=== PATIENT | male | born 1980 | race African-American/Black ===

== ENCOUNTER 2021-01-06 09:04 | Inpatient (IN) | payer OTHER ==
[2021-01-06 10:01] VITALS: BMI 25.5
[2021-01-06] MEDS ORDERED: BISMUTH SUBSALICYLATE 524 MG/30 ML PO PRN (12:02)
[2021-01-06] MEDS ORDERED: MAGNESIUM CITRATE 300 ML BOTTLE PO PRN (12:02)
[2021-01-06] MEDS ORDERED: ONDANSETRON *ODT* 4 MG TABLET SL PRN (12:02)
[2021-01-06] MEDS ORDERED: LORazepam 1 MG TABLET PO PRN (12:02)
[2021-01-06] MEDS ORDERED: ACETAMINOPHEN 325 MG TABLET (FP) PO PRN ×2 (12:02)
[2021-01-06] MEDS ORDERED: MENTHOL/PHENOL 1 EACH UD MM PRN (12:02)
[2021-01-06] MEDS ORDERED: MAG HYDROX/AL HYDROX/SIMETH 30 ML UNIT-DOSE CUP PO PRN (12:02)
[2021-01-06] MEDS ORDERED: LORazepam 2 MG TABLET PO ONE (12:02)
[2021-01-06] MEDS ORDERED: MAGNESIUM HYDROX 2400MG/30ML ORAL SUSPENSION 30 ML CUP PO PRN (12:02)
[2021-01-06] MEDS ORDERED: hydrOXYzine PAMOATE 25 MG CAPSULE (FP) PO SCH (14:00)
[2021-01-06] MEDS: LIDOCAINE 5% TOPICAL PATCH TP SCH (15:08)
[2021-01-06] MEDS: LORazepam 2 MG TABLET PO SCH ×2 (18:08→23:18)
[2021-01-06] MEDS ORDERED: MELATONIN 5 MG TABLETS PO SCH (22:00)
[2021-01-06] MEDS: CHLORHEXIDINE GLUCONATE 0.12% 15ML CUP MM SCH (23:18)
[2021-01-06] MEDS: LIDOCAINE PATCH REMOVAL MC SCH (23:18)
[2021-01-06] MEDS: THIAMINE HCL 100 MG TABLET (FP) PO SCH (23:18)
[2021-01-07] MEDS: LORazepam 2 MG TABLET PO SCH ×4 (06:00→22:40)
[2021-01-07] MEDS: METHOCARBAMOL 500 MG TABLET PO PRN ×2 (06:01→19:33)
[2021-01-07] MEDS: IBUPROFEN 400 MG TABLET (FP) PO PRN (06:01)
[2021-01-07] MEDS ORDERED: METHADONE HCL 40 MG DISPERSABLE TABLET PO SCH (10:00)
[2021-01-07 10:11] LABS: HEMATOCRIT 38.6 % (35.4-49); HEMOGLOBIN 12.9 GM/dL (11.7-16.9); MCH 31.4 pg (25.7-33.7); MCHC 33.4 g/dl (32.0-35.9); MEAN PLT VOLUME 8.1 fl (7.5-11.1); PLATELET COUNT 256 10^3/uL (134-434); RDW 13.5 % (11.9-15.9); WHITE BLOOD COUNT 4.5 K/mm3 (4.0-10.0)
[2021-01-07 10:13] LABS: ALBUMIN 3.7 g/dl (3.4-5.0); BLOOD UREA NITROGEN 12.7 mg/dL (7-18); CALCIUM 8.8 mg/dL (8.5-10.1)
[2021-01-07 10:16] LABS: CREATININE 0.8 mg/dL (0.55-1.3)
[2021-01-07 10:17] LABS: BILIRUBIN,TOTAL 0.4 mg/dL (0.2-1); TOT PROT 6.8 g/dl (6.4-8.2)
[2021-01-07] MEDS: METHADONE HCL 40 MG DISPERSABLE TABLET PO SCH (10:48)
[2021-01-07] MEDS: LIDOCAINE 5% TOPICAL PATCH TP SCH (10:49)
[2021-01-07] MEDS: PRENATAL VITAMINS W/ FOLIC ACID TABLET (FP) PO SCH (10:49)
[2021-01-07] MEDS: CHLORHEXIDINE GLUCONATE 0.12% 15ML CUP MM SCH ×3 (10:57→22:39)
[2021-01-07] MEDS: NICOTINE 21 MG/24 HOURS TOPICAL PATCH TD PRN (14:16)
[2021-01-07] MEDS: NICOTINE POLACRILEX 2 MG GUM BUC PRN (18:50)
[2021-01-07] MEDS: LIDOCAINE PATCH REMOVAL MC SCH (22:40)
[2021-01-07] MEDS: SUVOREXANT 10 MG TABLET PO PRN (22:43)
[2021-01-07] MEDS: THIAMINE HCL 100 MG TABLET (FP) PO SCH (22:43)
[2021-01-08] MEDS: METHADONE HCL 40 MG DISPERSABLE TABLET PO SCH (05:42)
[2021-01-08] MEDS: LORazepam 1 MG TABLET PO SCH ×4 (05:43→22:31)
[2021-01-08] MEDS: METHOCARBAMOL 500 MG TABLET PO PRN (05:46)
[2021-01-08] MEDS: IBUPROFEN 400 MG TABLET (FP) PO PRN (05:46)
[2021-01-08] MEDS: CHLORHEXIDINE GLUCONATE 0.12% 15ML CUP MM SCH (10:07)
[2021-01-08] MEDS: LIDOCAINE 5% TOPICAL PATCH TP SCH (10:07)
[2021-01-08] MEDS: PRENATAL VITAMINS W/ FOLIC ACID TABLET (FP) PO SCH (10:09)
[2021-01-08] MEDS: CHLORHEXIDINE GLUCONATE 118 ML MOUTHWASH MM SCH ×3 (10:16→22:32)
[2021-01-08] MEDS ORDERED: ERGOCALCIFEROL (VIT D2) 50,000 UNIT (1.25 MG) CAPSULE PO SCH (11:15)
[2021-01-08] MEDS: NICOTINE 21 MG/24 HOURS TOPICAL PATCH TD PRN (12:54)
[2021-01-08] MEDS: NICOTINE POLACRILEX 2 MG GUM BUC PRN (12:55)
[2021-01-08] MEDS: THIAMINE HCL 100 MG TABLET (FP) PO SCH (22:30)
[2021-01-08] MEDS: SUVOREXANT 10 MG TABLET PO PRN (22:34)
[2021-01-08] MEDS: LIDOCAINE PATCH REMOVAL MC SCH (23:16)
[2021-01-09] MEDS ORDERED: LORazepam 0.5 MG TABLET PO PRN
[2021-01-09] MEDS: IBUPROFEN 400 MG TABLET (FP) PO PRN (03:07)
[2021-01-09] MEDS: LORazepam 0.5 MG TABLET PO SCH ×4 (05:41→22:21)
[2021-01-09] MEDS: METHADONE HCL 40 MG DISPERSABLE TABLET PO SCH (05:42)
[2021-01-09] MEDS: NICOTINE POLACRILEX 2 MG GUM BUC PRN ×4 (05:56→22:25)
[2021-01-09] MEDS: METHOCARBAMOL 500 MG TABLET PO PRN ×2 (05:57→15:19)
[2021-01-09 10:07] LABS: SARS-CoV-2 NAA Not Detected (Not Detected)
[2021-01-09] MEDS: PRENATAL VITAMINS W/ FOLIC ACID TABLET (FP) PO SCH (10:49)
[2021-01-09] MEDS: LIDOCAINE 5% TOPICAL PATCH TP SCH (10:49)
[2021-01-09] MEDS: CHLORHEXIDINE GLUCONATE 118 ML MOUTHWASH MM SCH ×2 (10:50→22:25)
[2021-01-09] MEDS: NICOTINE 21 MG/24 HOURS TOPICAL PATCH TD PRN (11:07)
[2021-01-09] MEDS: THIAMINE HCL 100 MG TABLET (FP) PO SCH (22:21)
[2021-01-09] MEDS: LIDOCAINE PATCH REMOVAL MC SCH (22:22)
[2021-01-09] MEDS: SUVOREXANT 10 MG TABLET PO PRN (22:22)
[2021-01-10] MEDS ORDERED: LORazepam 0.5 MG TABLET PO ONE (05:00)
[2021-01-10] MEDS: IBUPROFEN 400 MG TABLET (FP) PO PRN (05:47)
[2021-01-10] MEDS: METHADONE HCL 40 MG DISPERSABLE TABLET PO SCH (05:48)
[2021-01-10] MEDS: NICOTINE POLACRILEX 2 MG GUM BUC PRN (05:52)
[2021-01-10 08:49] VITALS: BP 128/67; PULSE 71; TEMP 96.2
[2021-01-10] MEDS: LIDOCAINE 5% TOPICAL PATCH TP SCH (09:08)
[2021-01-10] MEDS: PRENATAL VITAMINS W/ FOLIC ACID TABLET (FP) PO SCH (09:08)
[2021-01-10] MEDS: CHLORHEXIDINE GLUCONATE 118 ML MOUTHWASH MM SCH (09:32)
[2021-01-11] MEDS ORDERED: NICOTINE POLACRILEX 2 MG GUM BC PRN (14:35)
[2021-01-11] MEDS ORDERED: MAG HYDROX/AL HYDROX/SIMETH 30 ML UNIT-DOSE CUP PO PRN (14:35)
[2021-01-11] MEDS ORDERED: ACETAMINOPHEN 325 MG TABLET (FP) PO PRN (14:35)
[2021-01-11] MEDS ORDERED: MAGNESIUM CITRATE 300 ML BOTTLE PO PRN (14:35)
[2021-01-11] MEDS ORDERED: MAGNESIUM HYDROX 2400MG/30ML ORAL SUSPENSION 30 ML CUP PO PRN (14:35)
[2021-01-11] MEDS ORDERED: guaiFENesin 200 MG/10 ML 10 ML UNIT-DOSE CUPS PO PRN (14:35)
[2021-01-11] MEDS ORDERED: LOPERAMIDE HCL 2 MG CAPSULE PO PRN (14:35)
[2021-01-11] MEDS ORDERED: IBUPROFEN 400 MG TABLET (FP) PO PRN (14:35)
[2021-01-11] MEDS ORDERED: P-EPHED 60MG/TRIPROLIDI 2.5MG TABLET PO PRN (14:35)
[2021-01-11] MEDS ORDERED: DOCUSATE SODIUM 100 MG CAPSULE (FP) PO PRN (14:37)
[2021-01-11] MEDS ORDERED: NAPROXEN 500 MG TABLET PO PRN (14:41)
[2021-01-11] MEDS ORDERED: NICOTINE 21 MG/24 HOURS TOPICAL PATCH TD SCH (14:45)
[2021-01-11] MEDS ORDERED: NICOTINE 7 MG/24 HOURS TOPICAL PATCH TD SCH (14:45)
[2021-01-11] MEDS ORDERED: LIDOCAINE 5% TOPICAL PATCH TP SCH (14:45)
[2021-01-11] MEDS ORDERED: PRENATAL VITAMINS W/ FOLIC ACID TABLET (FP) PO SCH (14:45)
[2021-01-11] MEDS ORDERED: hydrOXYzine PAMOATE 25 MG CAPSULE (FP) PO SCH (18:00)
[2021-01-11] MEDS ORDERED: LIDOCAINE PATCH REMOVAL MC SCH (22:00)
[2021-01-11] MEDS ORDERED: CHLORHEXIDINE GLUCONATE 0.12% 15ML CUP MM SCH (22:00)
[2021-01-11] MEDS ORDERED: THIAMINE HCL 100 MG TABLET (FP) PO SCH (22:00)
[2021-01-11] MEDS ORDERED: MELATONIN 5 MG TABLETS PO SCH (22:00)
== END 2021-01-10 09:37 | disposition home or self-care (01) | DRG 773 ==
LOC: EDBD → YASAS 09:04 → Y3N 13:44
PROVIDERS: ADMIT Allergy & Immunology; ATTEND Allergy & Immunology
PROC: HZ2ZZZZ Detoxification Services for Substance Abuse Treatment (ICD-10-PCS; principal; 2021-01-06)
DX: F10.230 Alcohol dependence with withdrawal, uncomplicated (principal); F11.20 Opioid dependence, uncomplicated; F16.20 Hallucinogen dependence, uncomplicated; F17.210 Nicotine dependence, cigarettes, uncomplicated; F19.282 Other psychoactive substance dependence with psychoactive substance-induced sleep disorder; F19.24 Other psychoactive substance dependence with psychoactive substance-induced mood disorder; F31.9 Bipolar disorder, unspecified; E55.9 Vitamin D deficiency, unspecified; M54.5 Low back pain; R68.84 Jaw pain; R20.0 Anesthesia of skin; Z87.81 Personal history of (healed) traumatic fracture; Z88.0 Allergy status to penicillin; Z88.8 Allergy status to other drugs, medicaments and biological substances; Z88.5 Allergy status to narcotic agent
CPT/HCPCS: 36415; 72100-TC-FY; 80053; 80307; 85027; 86780; C9803; G0463-25; U0003; U0005

== ENCOUNTER 2021-01-11 09:18 | Inpatient (IN) | payer OTHER ==
[2021-01-11 10:05] VITALS: BMI 26.6
[2021-01-11] MEDS ORDERED: P-EPHED 60MG/TRIPROLIDI 2.5MG TABLET PO PRN (14:57)
[2021-01-11] MEDS ORDERED: ACETAMINOPHEN 325 MG TABLET (FP) PO PRN (14:57)
[2021-01-11] MEDS ORDERED: IBUPROFEN 400 MG TABLET (FP) PO PRN (14:57)
[2021-01-11] MEDS ORDERED: MAGNESIUM HYDROX 2400MG/30ML ORAL SUSPENSION 30 ML CUP PO PRN (14:57)
[2021-01-11] MEDS ORDERED: guaiFENesin 200 MG/10 ML 10 ML UNIT-DOSE CUPS PO PRN (14:57)
[2021-01-11] MEDS ORDERED: LOPERAMIDE HCL 2 MG CAPSULE PO PRN (14:57)
[2021-01-11] MEDS ORDERED: MAGNESIUM CITRATE 300 ML BOTTLE PO PRN (14:57)
[2021-01-11] MEDS ORDERED: MAG HYDROX/AL HYDROX/SIMETH 30 ML UNIT-DOSE CUP PO PRN (14:57)
[2021-01-11] MEDS ORDERED: NAPROXEN 500 MG TABLET PO PRN (14:58)
[2021-01-11] MEDS ORDERED: NICOTINE 7 MG/24 HOURS TOPICAL PATCH TD SCH (15:00)
[2021-01-11] MEDS: NICOTINE 21 MG/24 HOURS TOPICAL PATCH TD SCH (17:14)
[2021-01-11] MEDS: hydrOXYzine PAMOATE 25 MG CAPSULE (FP) PO SCH ×2 (17:14→21:22)
[2021-01-11] MEDS: SUVOREXANT 10 MG TABLET PO PRN (21:22)
[2021-01-11] MEDS: THIAMINE HCL 100 MG TABLET (FP) PO SCH (21:23)
[2021-01-11] MEDS ORDERED: MELATONIN 5 MG TABLETS PO SCH (22:00)
[2021-01-11] MEDS: CHLORHEXIDINE GLUCONATE 118 ML MOUTHWASH MM SCH (22:40)
[2021-01-12 05:00] LABS: PH,URINE 5.5 (5.0-8.0); URINE APPEARANCE CLEAR; URINE BILIRUBIN NEGATIVE (NEGATIVE); URINE COLOR YELLOW; URINE GLUCOSE (UA) NEGATIVE (NEGATIVE); URINE KETONE TRACE (NEGATIVE); URINE LEUK ESTERASE NEGATIVE (NEGATIVE); URINE NITRITE NEGATIVE (NEGATIVE); URINE PROTEIN NEGATIVE (NEGATIVE)
[2021-01-12] MEDS: hydrOXYzine PAMOATE 25 MG CAPSULE (FP) PO SCH ×5 (06:14→21:29)
[2021-01-12] MEDS: METHADONE HCL 40 MG DISPERSABLE TABLET PO SCH (06:14)
[2021-01-12] MEDS: PRENATAL VITAMINS W/ FOLIC ACID TABLET (FP) PO SCH (09:55)
[2021-01-12] MEDS: NICOTINE 21 MG/24 HOURS TOPICAL PATCH TD SCH (09:55)
[2021-01-12] MEDS: CHLORHEXIDINE GLUCONATE 118 ML MOUTHWASH MM SCH ×2 (09:56→21:30)
[2021-01-12] MEDS: THIAMINE HCL 100 MG TABLET (FP) PO SCH (21:28)
[2021-01-12] MEDS: SUVOREXANT 10 MG TABLET PO PRN (21:29)
[2021-01-13] MEDS: METHADONE HCL 40 MG DISPERSABLE TABLET PO SCH (06:26)
[2021-01-13] MEDS: hydrOXYzine PAMOATE 25 MG CAPSULE (FP) PO SCH ×5 (06:26→21:47)
[2021-01-13] MEDS: PRENATAL VITAMINS W/ FOLIC ACID TABLET (FP) PO SCH (09:52)
[2021-01-13] MEDS: CHLORHEXIDINE GLUCONATE 118 ML MOUTHWASH MM SCH ×2 (09:52→21:24)
[2021-01-13] MEDS: NICOTINE 21 MG/24 HOURS TOPICAL PATCH TD SCH (09:53)
[2021-01-13] MEDS: LIDOCAINE 5% TOPICAL PATCH TP SCH (14:51)
[2021-01-13] MEDS: LIDOCAINE PATCH REMOVAL MC SCH (21:23)
[2021-01-13] MEDS: THIAMINE HCL 100 MG TABLET (FP) PO SCH (21:24)
[2021-01-13] MEDS: SUVOREXANT 10 MG TABLET PO PRN (21:25)
[2021-01-14] MEDS: METHADONE HCL 40 MG DISPERSABLE TABLET PO SCH (06:04)
[2021-01-14] MEDS: hydrOXYzine PAMOATE 25 MG CAPSULE (FP) PO SCH ×5 (06:05→21:32)
[2021-01-14] MEDS: NICOTINE 21 MG/24 HOURS TOPICAL PATCH TD SCH (10:11)
[2021-01-14] MEDS: PRENATAL VITAMINS W/ FOLIC ACID TABLET (FP) PO SCH (10:11)
[2021-01-14] MEDS: CHLORHEXIDINE GLUCONATE 118 ML MOUTHWASH MM SCH ×2 (10:12→21:31)
[2021-01-14] MEDS: LIDOCAINE 5% TOPICAL PATCH TP SCH (10:12)
[2021-01-14] MEDS: NICOTINE POLACRILEX 2 MG GUM BUC PRN (10:36)
[2021-01-14] MEDS: LIDOCAINE PATCH REMOVAL MC SCH (21:32)
[2021-01-14] MEDS: THIAMINE HCL 100 MG TABLET (FP) PO SCH (21:33)
[2021-01-14] MEDS: SUVOREXANT 10 MG TABLET PO PRN (21:35)
[2021-01-15] MEDS: METHADONE HCL 40 MG DISPERSABLE TABLET PO SCH (06:15)
[2021-01-15] MEDS: hydrOXYzine PAMOATE 25 MG CAPSULE (FP) PO SCH (06:15)
[2021-01-15] MEDS ORDERED: ERGOCALCIFEROL (VIT D2) 50,000 UNIT (1.25 MG) CAPSULE PO SCH (10:00)
[2021-01-15] MEDS: LIDOCAINE 5% TOPICAL PATCH TP SCH (10:03)
[2021-01-15] MEDS: PRENATAL VITAMINS W/ FOLIC ACID TABLET (FP) PO SCH (10:03)
[2021-01-15] MEDS: CHLORHEXIDINE GLUCONATE 118 ML MOUTHWASH MM SCH ×2 (10:03→21:17)
[2021-01-15] MEDS: NICOTINE 21 MG/24 HOURS TOPICAL PATCH TD SCH (10:05)
[2021-01-15] MEDS: NICOTINE POLACRILEX 2 MG GUM BUC PRN (18:55)
[2021-01-15] MEDS: THIAMINE HCL 100 MG TABLET (FP) PO SCH (21:15)
[2021-01-15] MEDS: SUVOREXANT 10 MG TABLET PO PRN (21:15)
[2021-01-15] MEDS: hydrOXYzine PAMOATE 25 MG CAPSULE (FP) PO PRN (21:16)
[2021-01-15] MEDS: LIDOCAINE PATCH REMOVAL MC SCH (21:16)
[2021-01-16] MEDS: METHADONE HCL 40 MG DISPERSABLE TABLET PO SCH (06:42)
[2021-01-16] MEDS: NICOTINE 21 MG/24 HOURS TOPICAL PATCH TD SCH (10:01)
[2021-01-16] MEDS: LIDOCAINE 5% TOPICAL PATCH TP SCH (10:01)
[2021-01-16] MEDS: PRENATAL VITAMINS W/ FOLIC ACID TABLET (FP) PO SCH (10:01)
[2021-01-16] MEDS: CHLORHEXIDINE GLUCONATE 118 ML MOUTHWASH MM SCH ×2 (10:03→21:29)
[2021-01-16] MEDS: THIAMINE HCL 100 MG TABLET (FP) PO SCH (21:28)
[2021-01-16] MEDS: LIDOCAINE PATCH REMOVAL MC SCH (21:29)
[2021-01-16] MEDS: SUVOREXANT 10 MG TABLET PO PRN (21:29)
[2021-01-17] MEDS: METHADONE HCL 40 MG DISPERSABLE TABLET PO SCH (06:31)
[2021-01-17 06:53] VITALS: TEMP 98
[2021-01-17] MEDS: CHLORHEXIDINE GLUCONATE 118 ML MOUTHWASH MM SCH ×2 (09:44→21:25)
[2021-01-17] MEDS: LIDOCAINE 5% TOPICAL PATCH TP SCH (09:44)
[2021-01-17] MEDS: NICOTINE 21 MG/24 HOURS TOPICAL PATCH TD SCH (09:44)
[2021-01-17] MEDS: PRENATAL VITAMINS W/ FOLIC ACID TABLET (FP) PO SCH (09:44)
[2021-01-17] MEDS: hydrOXYzine PAMOATE 25 MG CAPSULE (FP) PO PRN (21:24)
[2021-01-17] MEDS: THIAMINE HCL 100 MG TABLET (FP) PO SCH (21:24)
[2021-01-17] MEDS: LIDOCAINE PATCH REMOVAL MC SCH (21:25)
[2021-01-17] MEDS ORDERED: SUVOREXANT 10 MG TABLET PO PRN (22:00)
[2021-01-18] MEDS ORDERED: METHADONE HCL 40 MG DISPERSABLE TABLET PO SCH (06:00)
[2021-01-18 06:59] VITALS: BP 104/66; PULSE 56
== END 2021-01-18 09:28 | disposition home or self-care (01) | DRG 772 ==
LOC: YASAS 09:18 → EDBD 09:18 → Y3W 15:21
PROVIDERS: ADMIT Allergy & Immunology; ATTEND Allergy & Immunology
PROC: HZ42ZZZ Group Counseling for Substance Abuse Treatment, Cognitive-Behavioral (ICD-10-PCS; principal; 2021-01-11)
DX: F10.20 Alcohol dependence, uncomplicated (principal); F11.20 Opioid dependence, uncomplicated; F16.20 Hallucinogen dependence, uncomplicated; F17.210 Nicotine dependence, cigarettes, uncomplicated; F19.282 Other psychoactive substance dependence with psychoactive substance-induced sleep disorder; F19.24 Other psychoactive substance dependence with psychoactive substance-induced mood disorder; E55.9 Vitamin D deficiency, unspecified; G89.29 Other chronic pain; M54.5 Low back pain; R68.84 Jaw pain; Z98.890 Other specified postprocedural states; Z88.5 Allergy status to narcotic agent; Z88.8 Allergy status to other drugs, medicaments and biological substances; Y04.0XXA Assault by unarmed brawl or fight, initial encounter; Y93.89 Activity, other specified; Y92.230 Patient room in hospital as the place of occurrence of the external cause
CPT/HCPCS: 81003; C9803; U0003; U0005

== ENCOUNTER 2021-03-04 13:32 | Inpatient (IN) | payer OTHER ==
[2021-03-04] MEDS ORDERED: LORazepam 2 MG/ML SDV VIAL ONE (13:48)
[2021-03-04] MEDS ORDERED: DEXTROSE 50%-WATER 25 GM/50 ML DISP.SYRIN ONE (14:00)
[2021-03-04] MEDS ORDERED: DEXTROSE 50%-WATER - 25 GM/50 ML VIAL IVPUSH ONE (14:01)
[2021-03-04] MEDS ORDERED: HALOPERIDOL LACTATE 5 MG/ML IM ONE (14:09)
[2021-03-04] MEDS ORDERED: HALOPERIDOL LACTATE 5 MG/ML ONE (14:10)
[2021-03-04 14:30] LABS: BASO % 0.5 % (0-2.0); HEMATOCRIT 38.9 % (35.4-49); HEMOGLOBIN 13.7 GM/dL (11.7-16.9); LYMPH % 44.8 % (8-40); MCH 32.7 pg (25.7-33.7); MCHC 35.2 g/dl (32.0-35.9); MEAN CELL VOLUME 92.8 fl (80-96); MEAN PLT VOLUME 7.8 fl (7.5-11.1); MONO % 13.7 % (3.8-10.2); PLATELET COUNT 271 10^3/uL (134-434); RBC 4.19 M/mm3 (4.00-5.60); RDW 13.5 % (11.9-15.9); WHITE BLOOD COUNT 8.6 K/mm3 (4.0-10.0)
[2021-03-04 14:32] VITALS: BMI 23.6
[2021-03-04 14:49] LABS: CHLORIDE 108 mmol/L (98-107); SODIUM 144 mmol/L (136-145)
[2021-03-04 14:51] LABS: CALCIUM 9.3 mg/dL (8.5-10.1)
[2021-03-04 14:52] LABS: ALBUMIN 4.3 g/dl (3.4-5.0); ANION GAP 6 MMOL/L (8-16); BLOOD UREA NITROGEN 23.1 mg/dL (7-18); CO2 30 mmol/L (21-32); GLUCOSE,RANDOM 59 mg/dL (74-106); LIPASE 130 U/L (73-393)
[2021-03-04 14:54] LABS: SGPT/ALT 30 U/L (13-61)
[2021-03-04 14:55] LABS: CREATININE 0.9 mg/dL (0.55-1.3); SGOT/AST 40 U/L (15-37)
[2021-03-04 14:56] LABS: BILIRUBIN,TOTAL 0.4 mg/dL (0.2-1); TOT PROT 7.6 g/dl (6.4-8.2)
[2021-03-04 14:57] LABS: ALK PHOS 95 U/L (45-117)
[2021-03-04] MEDS ORDERED: diazePAM CARPU-JECT 10 MG/2 ML DISP.SYRIN IVPUSH ONE (15:32)
[2021-03-04] MEDS ORDERED: diazePAM CARPU-JECT 10 MG/2 ML DISP.SYRIN ONE (15:35)
[2021-03-04] MEDS ORDERED: LORazepam 2 MG/ML SDV VIAL IM ONE (16:00)
[2021-03-04 16:40] LABS: EPI CELLS 9 /uL (0-25.1); HYALINE CASTS 1 /uL (0-3.1); PH,URINE 6.5 (5.0-8.0); URINE APPEARANCE CLOUDY; URINE BACTERIA 51 /uL (0-1359); URINE BILIRUBIN NEGATIVE (NEGATIVE); URINE COLOR DK YELLOW; URINE GLUCOSE (UA) NEGATIVE (NEGATIVE); URINE KETONE TRACE (NEGATIVE); URINE LEUK ESTERASE TRACE (NEGATIVE); URINE NITRITE NEGATIVE (NEGATIVE); URINE PROTEIN 1+ (NEGATIVE); URINE WBC 38 /uL (0-25.8)
[2021-03-04 16:46] LABS: URINE BENZODIAZEPINES NEGATIVE (NEGATIVE)
[2021-03-04 16:47] LABS: COCAINE, UR NEGATIVE (NEGATIVE); OPIATES, URI NEGATIVE (NEGATIVE); URINE AMPHETAMINES NEGATIVE (NEGATIVE); URINE BARBITURATES NEGATIVE (NEGATIVE)
[2021-03-04 16:48] LABS: METHADONE, UR POSITIVE (NEGATIVE); PHENCYCLIDINE,URINE POSITIVE (NEGATIVE)
[2021-03-04] MEDS ORDERED: SODIUM CHLORIDE 1,000 ML IV STA (16:51)
[2021-03-04 17:58] LABS: URINE RBC 1619.2 /uL (0-23.9)
[2021-03-04] MEDS ORDERED: FOLIC ACID INJECTION - 1 MG, THIAMINE HCL 200 MG, MULTIVIT INJECTION ADULT 10 ML in SOD... IVPB ONE (19:40)
[2021-03-04] MEDS ORDERED: SODIUM CHLORIDE 1,000 ML IV SCH (21:15)
[2021-03-04] MEDS ORDERED: ENOXAPARIN NA (PORCINE) 40 MG/0.4 ML DISP.SYRIN SQ ONE (22:33)
[2021-03-04] MEDS: ENOXAPARIN NA (PORCINE) 40 MG/0.4 ML DISP.SYRIN SQ SCH (22:55)
[2021-03-04 23:00] LABS: MAGNESIUM 2.5 mg/dL (1.8-2.4)
[2021-03-04 23:03] LABS: PHOSPHOROUS 3.4 mg/dL (2.5-4.9)
[2021-03-05] MEDS ORDERED: FOLIC ACID 1 MG TABLET (FP) ONE (09:34)
[2021-03-05] MEDS ORDERED: THIAMINE HCL 100 MG TABLET (FP) ONE (09:34)
[2021-03-05] MEDS ORDERED: ENOXAPARIN NA (PORCINE) 40 MG/0.4 ML DISP.SYRIN SQ ONE (09:35)
[2021-03-05] MEDS ORDERED: FOLIC ACID 1 MG TABLET (FP) PO SCH (10:00)
[2021-03-05] MEDS ORDERED: NICOTINE 21 MG/24 HOURS TOPICAL PATCH TD SCH (10:00)
[2021-03-05] MEDS ORDERED: THIAMINE HCL 100 MG TABLET (FP) PO SCH (10:00)
[2021-03-05] MEDS: ENOXAPARIN NA (PORCINE) 40 MG/0.4 ML DISP.SYRIN SQ SCH (10:01)
[2021-03-05 12:34] VITALS: BP 122/64; PULSE 61; TEMP 97.9
== END 2021-03-05 13:10 | disposition other institution (70) | DRG 812 ==
LOC: JER 13:32 → JERBED 18:07
PROVIDERS: ADMIT Internal Medicine; ATTEND Internal Medicine
DX: T40.901A Poisoning by unspecified psychodysleptics [hallucinogens], accidental (unintentional), initial encounter (principal); R55 Syncope and collapse; Y92.238 Other place in hospital as the place of occurrence of the external cause; T40.2X1A Poisoning by other opioids, accidental (unintentional), initial encounter; F11.29 Opioid dependence with unspecified opioid-induced disorder; M62.82 Rhabdomyolysis; F17.210 Nicotine dependence, cigarettes, uncomplicated; R45.1 Restlessness and agitation; F41.9 Anxiety disorder, unspecified; F31.9 Bipolar disorder, unspecified; F20.9 Schizophrenia, unspecified; M54.5 Low back pain; R31.9 Hematuria, unspecified; Z88.0 Allergy status to penicillin
CPT/HCPCS: 36415; 70450-TC; 71045-TC-FY; 80053; 80307; 81003; 82550; 82553; 82962; 83690; 83735; 84100; 84443; 84484; 85025; 93005; 93010; 99285-25; C9803; U0003; U0005

== ENCOUNTER 2021-03-07 09:32 | Inpatient (IN) | payer OTHER ==
[2021-03-07 10:45] VITALS: BMI 29.2
[2021-03-07] MEDS ORDERED: IBUPROFEN 400 MG TABLET (FP) PO PRN (15:45)
[2021-03-07] MEDS ORDERED: MAGNESIUM HYDROX 2400MG/30ML ORAL SUSPENSION 30 ML CUP PO PRN (15:45)
[2021-03-07] MEDS ORDERED: MAG HYDROX/AL HYDROX/SIMETH 30 ML UNIT-DOSE CUP PO PRN (15:45)
[2021-03-07] MEDS ORDERED: LOPERAMIDE HCL 2 MG CAPSULE PO PRN (15:45)
[2021-03-07] MEDS ORDERED: ACETAMINOPHEN 325 MG TABLET (FP) PO PRN (15:45)
[2021-03-07] MEDS ORDERED: NICOTINE POLACRILEX 4 MG GUM BC PRN (15:45)
[2021-03-07] MEDS ORDERED: guaiFENesin 200 MG/10 ML 10 ML UNIT-DOSE CUPS PO PRN (15:45)
[2021-03-07] MEDS ORDERED: P-EPHED 60MG/TRIPROLIDI 2.5MG TABLET PO PRN (15:45)
[2021-03-07] MEDS ORDERED: MAGNESIUM CITRATE 300 ML BOTTLE PO PRN (15:45)
[2021-03-07] MEDS ORDERED: NICOTINE 10 MG CARTRIDGE (INHALER) IH PRN (15:45)
[2021-03-07] MEDS ORDERED: MINERAL OIL/PETROLAT/WATER TOPICAL CREAM 454 GM JAR TP PRN (15:47)
[2021-03-07] MEDS ORDERED: HYDROCORTISONE 1% TOPICAL CREAM 30 GM TUBE TP PRN (15:47)
[2021-03-07] MEDS ORDERED: COLLOIDAL OATMEAL 1 BAR EACH TP PRN (15:51)
[2021-03-07] MEDS ORDERED: NAPROXEN 375 MG TABLET PO PRN (16:50)
[2021-03-07] MEDS ORDERED: BACLOFEN 10 MG TABLET (FP) PO PRN (16:50)
[2021-03-07] MEDS ORDERED: ERGOCALCIFEROL (VIT D2) 50,000 UNIT (1.25 MG) CAPSULE PO SCH (17:00)
[2021-03-07] MEDS: hydrOXYzine PAMOATE 25 MG CAPSULE (FP) PO SCH ×2 (17:26→21:07)
[2021-03-07] MEDS ORDERED: THIAMINE HCL 100 MG TABLET (FP) PO SCH (22:00)
[2021-03-07] MEDS ORDERED: MELATONIN 5 MG TABLETS PO SCH (22:00)
[2021-03-08] MEDS ORDERED: methaDONE HCL 40 MG DISPERSABLE TABLET PO SCH (06:00)
[2021-03-08 06:58] VITALS: BP 121/78; PULSE 52; TEMP 96.4
[2021-03-08] MEDS: hydrOXYzine PAMOATE 25 MG CAPSULE (FP) PO SCH ×2 (07:05→10:09)
[2021-03-08] MEDS ORDERED: PRENATAL VITAMINS W/ FOLIC ACID TABLET (FP) PO SCH (10:00)
== END 2021-03-08 10:35 | disposition left against medical advice (07) | DRG 770 ==
LOC: YASAS 09:32 → Y3W 16:27
PROVIDERS: ADMIT Allergy & Immunology; ATTEND Allergy & Immunology
PROC: HZ2ZZZZ Detoxification Services for Substance Abuse Treatment (ICD-10-PCS; principal; 2021-03-07)
DX: F11.20 Opioid dependence, uncomplicated (principal); F13.20 Sedative, hypnotic or anxiolytic dependence, uncomplicated; F16.20 Hallucinogen dependence, uncomplicated; F17.210 Nicotine dependence, cigarettes, uncomplicated; F31.9 Bipolar disorder, unspecified; F20.9 Schizophrenia, unspecified; F41.9 Anxiety disorder, unspecified; E55.9 Vitamin D deficiency, unspecified; L30.9 Dermatitis, unspecified; R68.84 Jaw pain; M54.5 Low back pain; G89.29 Other chronic pain; Z88.8 Allergy status to other drugs, medicaments and biological substances; Z88.0 Allergy status to penicillin; Z88.5 Allergy status to narcotic agent
CPT/HCPCS: C9803; U0003; U0005

== ENCOUNTER 2021-04-25 19:22 | Inpatient (IN) | payer OTHER ==
[2021-04-26 02:34] VITALS: BMI 25.5
[2021-04-26] MEDS ORDERED: NALOXONE HCL 0.4 MG/ML VIAL IM PRN (02:46)
[2021-04-26] MEDS ORDERED: ACETAMINOPHEN 325 MG TABLET (FP) PO PRN (02:46)
[2021-04-26] MEDS ORDERED: guaiFENesin 200 MG/10 ML 10 ML UNIT-DOSE CUPS PO PRN (02:46)
[2021-04-26] MEDS ORDERED: MAGNESIUM HYDROX 2400MG/30ML ORAL SUSPENSION 30 ML CUP PO PRN (02:46)
[2021-04-26] MEDS ORDERED: NICOTINE 10 MG CARTRIDGE (INHALER) IH PRN (02:46)
[2021-04-26] MEDS ORDERED: MAG HYDROX/AL HYDROX/SIMETH 30 ML UNIT-DOSE CUP PO PRN (02:46)
[2021-04-26] MEDS ORDERED: P-EPHED 60MG/TRIPROLIDI 2.5MG TABLET PO PRN (02:46)
[2021-04-26] MEDS ORDERED: MAGNESIUM CITRATE 300 ML BOTTLE PO PRN (02:46)
[2021-04-26] MEDS ORDERED: IBUPROFEN 400 MG TABLET (FP) PO PRN (02:46)
[2021-04-26] MEDS ORDERED: DICYCLOMINE HCL 10 MG CAPSULE PO PRN (02:46)
[2021-04-26] MEDS ORDERED: NALOXONE (NARCAN) HCL 4 MG/0.1 ML SPRAY NS PRN (02:46)
[2021-04-26] MEDS ORDERED: METHOCARBAMOL 500 MG TABLET PO PRN (02:46)
[2021-04-26] MEDS ORDERED: MENTHOL/PHENOL 1 EACH UD MM PRN (02:46)
[2021-04-26] MEDS ORDERED: hydrOXYzine PAMOATE 25 MG CAPSULE (FP) PO ONE (03:52)
[2021-04-26] MEDS ORDERED: methaDONE HCL 10 MG TABLET PO SCH (08:30)
[2021-04-26] MEDS ORDERED: ERGOCALCIFEROL (VIT D2) 50,000 UNIT (1.25 MG) CAPSULE PO SCH (08:30)
[2021-04-26 10:24] LABS: HEMATOCRIT 39.2 % (35.4-49); HEMOGLOBIN 13.4 GM/dL (11.7-16.9); MCH 31.6 pg (25.7-33.7); MCHC 34.1 g/dl (32.0-35.9); MEAN CELL VOLUME 92.8 fl (80-96); MEAN PLT VOLUME 7.9 fl (7.5-11.1); PLATELET COUNT 337 10^3/uL (134-434); RBC 4.22 M/mm3 (4.00-5.60); RDW 13.4 % (11.9-15.9); WHITE BLOOD COUNT 7.3 K/mm3 (4.0-10.0)
[2021-04-26 11:07] LABS: ALBUMIN 3.6 g/dl (3.4-5.0); BLOOD UREA NITROGEN 19.3 mg/dL (7-18); CALCIUM 9.2 mg/dL (8.5-10.1)
[2021-04-26 11:09] LABS: CREATININE 0.8 mg/dL (0.55-1.3)
[2021-04-26 11:11] LABS: BILIRUBIN,TOTAL 0.3 mg/dL (0.2-1); TOT PROT 7.4 g/dl (6.4-8.2)
[2021-04-26] MEDS ORDERED: METHYL SALICYLATE/MENTHOL OINT 30 GM TUBE TP PRN (11:51)
[2021-04-26] MEDS: methaDONE HCL 40 MG DISPERSABLE TABLET PO SCH (12:37)
[2021-04-26] MEDS: HYDROCORTISONE 1% TOPICAL CREAM 30 GM TUBE TP SCH ×2 (12:38→21:41)
[2021-04-26] MEDS: POLYETHYLENE GLYCOL 3350 255 GM BTL PO SCH (12:39)
[2021-04-26] MEDS: PRENATAL VITAMINS W/ FOLIC ACID TABLET (FP) PO SCH (12:39)
[2021-04-26] MEDS: NICOTINE 14 MG/24 HOURS TOPICAL PATCH TD SCH (12:39)
[2021-04-26] MEDS: CHLORHEXIDINE GLUCONATE 0.12% 15ML CUP MM SCH ×2 (12:39→21:36)
[2021-04-26] MEDS: NICOTINE POLACRILEX 4 MG GUM BUC SCH ×2 (14:35→21:36)
[2021-04-26] MEDS: hydrOXYzine PAMOATE 25 MG CAPSULE (FP) PO PRN ×2 (17:51→21:38)
[2021-04-26] MEDS ORDERED: PT OWN MED DRAWER 7, Y5N ONE (21:35)
[2021-04-26] MEDS: THIAMINE HCL 100 MG TABLET (FP) PO SCH (21:36)
[2021-04-26] MEDS: MELATONIN 5 MG TABLETS PO SCH (21:36)
[2021-04-27] MEDS: hydrOXYzine PAMOATE 25 MG CAPSULE (FP) PO PRN ×3 (06:36→21:52)
[2021-04-27] MEDS: methaDONE HCL 40 MG DISPERSABLE TABLET PO SCH (06:36)
[2021-04-27] MEDS: NICOTINE POLACRILEX 4 MG GUM BUC SCH (06:37)
[2021-04-27] MEDS ORDERED: NICOTINE POLACRILEX 2 MG GUM BUC PRN (08:14)
[2021-04-27] MEDS: HYDROCORTISONE 1% TOPICAL CREAM 30 GM TUBE TP SCH ×2 (09:24→21:54)
[2021-04-27] MEDS: NICOTINE 14 MG/24 HOURS TOPICAL PATCH TD SCH (09:24)
[2021-04-27] MEDS: CHLORHEXIDINE GLUCONATE 0.12% 15ML CUP MM SCH (09:24)
[2021-04-27] MEDS: PRENATAL VITAMINS W/ FOLIC ACID TABLET (FP) PO SCH (09:25)
[2021-04-27] MEDS ORDERED: ERGOCALCIFEROL (VIT D2) 50,000 UNIT (1.25 MG) CAPSULE PO SCH (10:00)
[2021-04-27] MEDS: POLYETHYLENE GLYCOL 3350 255 GM BTL PO SCH (11:05)
[2021-04-27] MEDS ORDERED: COLLOIDAL OATMEAL 1 BAR EACH TP PRN (11:29)
[2021-04-27] MEDS: MELATONIN 5 MG TABLETS PO SCH (21:51)
[2021-04-27] MEDS: NAPROXEN 375 MG TABLET PO PRN (21:52)
[2021-04-27] MEDS: THIAMINE HCL 100 MG TABLET (FP) PO SCH (21:54)
[2021-04-27] MEDS: MINERAL OIL/PETROLAT/WATER TOPICAL CREAM 113 GM JAR TP SCH (21:55)
[2021-04-27] MEDS: CHLORHEXIDINE GLUCONATE 118 ML MOUTHWASH MM SCH (21:55)
[2021-04-28] MEDS: methaDONE HCL 40 MG DISPERSABLE TABLET PO SCH (06:30)
[2021-04-28] MEDS: hydrOXYzine PAMOATE 25 MG CAPSULE (FP) PO PRN ×3 (06:31→21:38)
[2021-04-28] MEDS: NAPROXEN 375 MG TABLET PO PRN (09:26)
[2021-04-28] MEDS: NICOTINE POLACRILEX 4 MG GUM BUC PRN ×2 (09:26→21:39)
[2021-04-28] MEDS: PRENATAL VITAMINS W/ FOLIC ACID TABLET (FP) PO SCH (09:26)
[2021-04-28] MEDS: NICOTINE 14 MG/24 HOURS TOPICAL PATCH TD SCH (09:26)
[2021-04-28] MEDS: MINERAL OIL/PETROLAT/WATER TOPICAL CREAM 113 GM JAR TP SCH ×2 (09:28→21:38)
[2021-04-28] MEDS: CHLORHEXIDINE GLUCONATE 118 ML MOUTHWASH MM SCH ×2 (09:28→21:38)
[2021-04-28] MEDS: HYDROCORTISONE 1% TOPICAL CREAM 30 GM TUBE TP SCH ×2 (09:28→21:38)
[2021-04-28] MEDS: POLYETHYLENE GLYCOL 3350 255 GM BTL PO SCH (09:28)
[2021-04-28] MEDS ORDERED: PT OWN MED DRAWER 7, Y5N ONE (11:55)
[2021-04-28] MEDS: THIAMINE HCL 100 MG TABLET (FP) PO SCH (21:37)
[2021-04-28] MEDS: MELATONIN 5 MG TABLETS PO SCH (21:37)
[2021-04-29] MEDS: methaDONE HCL 40 MG DISPERSABLE TABLET PO SCH (06:37)
[2021-04-29] MEDS ORDERED: PT OWN MED DRAWER 7, Y5N ONE ×2 (06:40→10:41)
[2021-04-29] MEDS: NAPROXEN 375 MG TABLET PO PRN (06:41)
[2021-04-29] MEDS: hydrOXYzine PAMOATE 25 MG CAPSULE (FP) PO PRN ×2 (06:41→11:05)
[2021-04-29] MEDS: CHLORHEXIDINE GLUCONATE 118 ML MOUTHWASH MM SCH ×2 (10:45→22:14)
[2021-04-29] MEDS: ERGOCALCIFEROL (VIT D2) 50,000 UNIT (1.25 MG) CAPSULE PO SCH (10:45)
[2021-04-29] MEDS: POLYETHYLENE GLYCOL 3350 255 GM BTL PO SCH (10:45)
[2021-04-29] MEDS: HYDROCORTISONE 1% TOPICAL CREAM 30 GM TUBE TP SCH ×2 (10:45→22:15)
[2021-04-29] MEDS: NICOTINE 14 MG/24 HOURS TOPICAL PATCH TD SCH (10:45)
[2021-04-29] MEDS: PRENATAL VITAMINS W/ FOLIC ACID TABLET (FP) PO SCH (10:45)
[2021-04-29] MEDS: MINERAL OIL/PETROLAT/WATER TOPICAL CREAM 113 GM JAR TP SCH ×2 (10:45→22:14)
[2021-04-29] MEDS: MELATONIN 5 MG TABLETS PO SCH (22:15)
[2021-04-29] MEDS: THIAMINE HCL 100 MG TABLET (FP) PO SCH (22:15)
[2021-04-30] MEDS: methaDONE HCL 40 MG DISPERSABLE TABLET PO SCH (06:21)
[2021-04-30] MEDS ORDERED: PT OWN MED DRAWER 7, Y5N ONE ×4 (06:22→21:50)
[2021-04-30] MEDS: NAPROXEN 375 MG TABLET PO PRN ×2 (06:23→21:49)
[2021-04-30] MEDS: hydrOXYzine PAMOATE 25 MG CAPSULE (FP) PO PRN ×2 (06:23→21:53)
[2021-04-30] MEDS: CHLORHEXIDINE GLUCONATE 118 ML MOUTHWASH MM SCH ×2 (10:36→21:55)
[2021-04-30] MEDS: PRENATAL VITAMINS W/ FOLIC ACID TABLET (FP) PO SCH (10:37)
[2021-04-30] MEDS: MINERAL OIL/PETROLAT/WATER TOPICAL CREAM 113 GM JAR TP SCH ×2 (10:37→21:55)
[2021-04-30] MEDS: HYDROCORTISONE 1% TOPICAL CREAM 30 GM TUBE TP SCH ×2 (10:37→23:36)
[2021-04-30] MEDS: NICOTINE 14 MG/24 HOURS TOPICAL PATCH TD SCH (10:37)
[2021-04-30] MEDS: POLYETHYLENE GLYCOL 3350 255 GM BTL PO SCH (10:37)
[2021-04-30] MEDS: THIAMINE HCL 100 MG TABLET (FP) PO SCH (21:51)
[2021-04-30] MEDS: MELATONIN 5 MG TABLETS PO SCH (21:52)
[2021-05-01] MEDS ORDERED: PT OWN MED DRAWER 7, Y5N ONE ×3 (05:12→20:28)
[2021-05-01] MEDS: NAPROXEN 375 MG TABLET PO PRN ×2 (06:18→20:24)
[2021-05-01] MEDS: methaDONE HCL 40 MG DISPERSABLE TABLET PO SCH (06:18)
[2021-05-01] MEDS: hydrOXYzine PAMOATE 25 MG CAPSULE (FP) PO PRN ×3 (06:19→20:23)
[2021-05-01] MEDS: HYDROCORTISONE 1% TOPICAL CREAM 30 GM TUBE TP SCH ×2 (09:42→22:20)
[2021-05-01] MEDS: NICOTINE 14 MG/24 HOURS TOPICAL PATCH TD SCH (09:42)
[2021-05-01] MEDS: MINERAL OIL/PETROLAT/WATER TOPICAL CREAM 113 GM JAR TP SCH ×2 (09:42→22:20)
[2021-05-01] MEDS: CHLORHEXIDINE GLUCONATE 118 ML MOUTHWASH MM SCH ×2 (09:42→22:20)
[2021-05-01] MEDS: POLYETHYLENE GLYCOL 3350 255 GM BTL PO SCH (09:42)
[2021-05-01] MEDS: PRENATAL VITAMINS W/ FOLIC ACID TABLET (FP) PO SCH (09:42)
[2021-05-01] MEDS: BACLOFEN 10 MG TABLET (FP) PO PRN (20:26)
[2021-05-01] MEDS: THIAMINE HCL 100 MG TABLET (FP) PO SCH (22:20)
[2021-05-01] MEDS: MELATONIN 5 MG TABLETS PO SCH (22:20)
[2021-05-02] MEDS ORDERED: PT OWN MED DRAWER 7, Y5N ONE ×3 (06:28→20:09)
[2021-05-02] MEDS: NAPROXEN 375 MG TABLET PO PRN (06:29)
[2021-05-02] MEDS: hydrOXYzine PAMOATE 25 MG CAPSULE (FP) PO PRN ×3 (06:29→21:31)
[2021-05-02] MEDS: BACLOFEN 10 MG TABLET (FP) PO PRN (06:30)
[2021-05-02] MEDS: methaDONE HCL 40 MG DISPERSABLE TABLET PO SCH (06:31)
[2021-05-02] MEDS: CHLORHEXIDINE GLUCONATE 118 ML MOUTHWASH MM SCH ×2 (09:06→21:32)
[2021-05-02] MEDS: POLYETHYLENE GLYCOL 3350 255 GM BTL PO SCH (09:07)
[2021-05-02] MEDS: HYDROCORTISONE 1% TOPICAL CREAM 30 GM TUBE TP SCH ×2 (09:07→21:32)
[2021-05-02] MEDS: MINERAL OIL/PETROLAT/WATER TOPICAL CREAM 113 GM JAR TP SCH ×2 (09:07→21:32)
[2021-05-02] MEDS: PRENATAL VITAMINS W/ FOLIC ACID TABLET (FP) PO SCH (09:09)
[2021-05-02] MEDS: NICOTINE 14 MG/24 HOURS TOPICAL PATCH TD SCH (09:09)
[2021-05-02] MEDS: NICOTINE POLACRILEX 4 MG GUM BUC PRN (09:09)
[2021-05-02] MEDS: NAPROXEN 500 MG TABLET PO PRN ×2 (13:09→21:31)
[2021-05-02] MEDS: MELATONIN 5 MG TABLETS PO SCH (21:31)
[2021-05-02] MEDS: THIAMINE HCL 100 MG TABLET (FP) PO SCH (21:32)
[2021-05-03] MEDS ORDERED: PT OWN MED DRAWER 7, Y5N ONE ×3 (05:14→19:24)
[2021-05-03] MEDS: hydrOXYzine PAMOATE 25 MG CAPSULE (FP) PO PRN ×3 (06:30→21:19)
[2021-05-03] MEDS: methaDONE HCL 40 MG DISPERSABLE TABLET PO SCH (06:30)
[2021-05-03] MEDS: NAPROXEN 500 MG TABLET PO PRN ×2 (06:30→21:19)
[2021-05-03] MEDS: MINERAL OIL/PETROLAT/WATER TOPICAL CREAM 113 GM JAR TP SCH ×2 (10:35→21:19)
[2021-05-03] MEDS: HYDROCORTISONE 1% TOPICAL CREAM 30 GM TUBE TP SCH ×2 (10:35→21:19)
[2021-05-03] MEDS: CHLORHEXIDINE GLUCONATE 118 ML MOUTHWASH MM SCH ×2 (10:35→21:19)
[2021-05-03] MEDS: PRENATAL VITAMINS W/ FOLIC ACID TABLET (FP) PO SCH (10:35)
[2021-05-03] MEDS: POLYETHYLENE GLYCOL 3350 255 GM BTL PO SCH (10:35)
[2021-05-03] MEDS: NICOTINE 14 MG/24 HOURS TOPICAL PATCH TD SCH (10:36)
[2021-05-03] MEDS: MELATONIN 5 MG TABLETS PO SCH (21:19)
[2021-05-03] MEDS: THIAMINE HCL 100 MG TABLET (FP) PO SCH (21:36)
[2021-05-04] MEDS ORDERED: PT OWN MED DRAWER 7, Y5N ONE ×4 (06:28→21:36)
[2021-05-04] MEDS: hydrOXYzine PAMOATE 25 MG CAPSULE (FP) PO PRN ×3 (06:29→21:33)
[2021-05-04] MEDS: NAPROXEN 500 MG TABLET PO PRN ×2 (06:29→21:36)
[2021-05-04] MEDS: methaDONE HCL 40 MG DISPERSABLE TABLET PO SCH (06:29)
[2021-05-04] MEDS: POLYETHYLENE GLYCOL 3350 255 GM BTL PO SCH (10:37)
[2021-05-04] MEDS: HYDROCORTISONE 1% TOPICAL CREAM 30 GM TUBE TP SCH ×2 (10:37→21:35)
[2021-05-04] MEDS: CHLORHEXIDINE GLUCONATE 118 ML MOUTHWASH MM SCH ×2 (10:37→21:35)
[2021-05-04] MEDS: PRENATAL VITAMINS W/ FOLIC ACID TABLET (FP) PO SCH (10:37)
[2021-05-04] MEDS: NICOTINE 14 MG/24 HOURS TOPICAL PATCH TD SCH (10:37)
[2021-05-04] MEDS: MINERAL OIL/PETROLAT/WATER TOPICAL CREAM 113 GM JAR TP SCH ×2 (10:37→21:34)
[2021-05-04] MEDS: MELATONIN 5 MG TABLETS PO SCH (21:34)
[2021-05-04] MEDS: THIAMINE HCL 100 MG TABLET (FP) PO SCH (21:34)
[2021-05-05] MEDS ORDERED: methaDONE HCL 40 MG DISPERSABLE TABLET PO SCH ×2 (06:47→11:00)
[2021-05-05] MEDS: methaDONE HCL 40 MG DISPERSABLE TABLET PO SCH (07:04)
[2021-05-05] MEDS: hydrOXYzine PAMOATE 25 MG CAPSULE (FP) PO PRN ×2 (07:06→11:53)
[2021-05-05] MEDS: MINERAL OIL/PETROLAT/WATER TOPICAL CREAM 113 GM JAR TP SCH ×2 (09:50→23:16)
[2021-05-05] MEDS: NICOTINE 14 MG/24 HOURS TOPICAL PATCH TD SCH (09:50)
[2021-05-05] MEDS: HYDROCORTISONE 1% TOPICAL CREAM 30 GM TUBE TP SCH ×2 (09:50→23:16)
[2021-05-05] MEDS: PRENATAL VITAMINS W/ FOLIC ACID TABLET (FP) PO SCH (09:50)
[2021-05-05] MEDS: POLYETHYLENE GLYCOL 3350 255 GM BTL PO SCH (09:50)
[2021-05-05] MEDS: CHLORHEXIDINE GLUCONATE 118 ML MOUTHWASH MM SCH ×2 (09:50→23:16)
[2021-05-05] MEDS ORDERED: PT OWN MED DRAWER 7, Y5N ONE ×2 (10:14→20:03)
[2021-05-05] MEDS: NAPROXEN 500 MG TABLET PO PRN (11:53)
[2021-05-05] MEDS: NICOTINE POLACRILEX 4 MG GUM BUC PRN (11:54)
[2021-05-05] MEDS: MELATONIN 5 MG TABLETS PO SCH (23:16)
[2021-05-05] MEDS: THIAMINE HCL 100 MG TABLET (FP) PO SCH (23:16)
[2021-05-06] MEDS ORDERED: PT OWN MED DRAWER 7, Y5N ONE ×3 (05:39→21:31)
[2021-05-06] MEDS: methaDONE HCL 40 MG DISPERSABLE TABLET PO SCH (06:49)
[2021-05-06] MEDS: hydrOXYzine PAMOATE 25 MG CAPSULE (FP) PO PRN ×3 (06:50→21:31)
[2021-05-06] MEDS: NAPROXEN 500 MG TABLET PO PRN ×2 (06:50→21:31)
[2021-05-06] MEDS: ACETAMINOPHEN 325 MG TABLET (FP) PO PRN (10:28)
[2021-05-06] MEDS: ERGOCALCIFEROL (VIT D2) 50,000 UNIT (1.25 MG) CAPSULE PO SCH (10:30)
[2021-05-06] MEDS: NICOTINE 14 MG/24 HOURS TOPICAL PATCH TD SCH (10:30)
[2021-05-06] MEDS: CHLORHEXIDINE GLUCONATE 118 ML MOUTHWASH MM SCH ×2 (10:30→21:32)
[2021-05-06] MEDS: POLYETHYLENE GLYCOL 3350 255 GM BTL PO SCH (10:30)
[2021-05-06] MEDS: PRENATAL VITAMINS W/ FOLIC ACID TABLET (FP) PO SCH (10:30)
[2021-05-06] MEDS: MINERAL OIL/PETROLAT/WATER TOPICAL CREAM 113 GM JAR TP SCH ×2 (10:30→21:32)
[2021-05-06] MEDS: HYDROCORTISONE 1% TOPICAL CREAM 30 GM TUBE TP SCH ×2 (10:30→21:33)
[2021-05-06] MEDS: MELATONIN 5 MG TABLETS PO SCH (21:31)
[2021-05-06] MEDS: THIAMINE HCL 100 MG TABLET (FP) PO SCH (21:33)
[2021-05-07] MEDS ORDERED: PT OWN MED DRAWER 7, Y5N ONE ×3 (05:44→21:36)
[2021-05-07] MEDS: methaDONE HCL 40 MG DISPERSABLE TABLET PO SCH (06:23)
[2021-05-07] MEDS: hydrOXYzine PAMOATE 25 MG CAPSULE (FP) PO PRN ×3 (06:24→21:33)
[2021-05-07] MEDS: NAPROXEN 500 MG TABLET PO PRN ×2 (06:24→21:35)
[2021-05-07] MEDS: POLYETHYLENE GLYCOL 3350 255 GM BTL PO SCH (12:15)
[2021-05-07] MEDS: CHLORHEXIDINE GLUCONATE 118 ML MOUTHWASH MM SCH ×2 (12:15→21:55)
[2021-05-07] MEDS: HYDROCORTISONE 1% TOPICAL CREAM 30 GM TUBE TP SCH ×2 (12:15→21:55)
[2021-05-07] MEDS: NICOTINE 14 MG/24 HOURS TOPICAL PATCH TD SCH (12:15)
[2021-05-07] MEDS: PRENATAL VITAMINS W/ FOLIC ACID TABLET (FP) PO SCH (12:15)
[2021-05-07] MEDS: MINERAL OIL/PETROLAT/WATER TOPICAL CREAM 113 GM JAR TP SCH ×2 (12:15→21:55)
[2021-05-07] MEDS: ACETAMINOPHEN 325 MG TABLET (FP) PO PRN (12:34)
[2021-05-07] MEDS: MELATONIN 5 MG TABLETS PO SCH (21:34)
[2021-05-07] MEDS: THIAMINE HCL 100 MG TABLET (FP) PO SCH (21:34)
[2021-05-08] MEDS: methaDONE HCL 40 MG DISPERSABLE TABLET PO SCH (06:44)
[2021-05-08] MEDS ORDERED: PT OWN MED DRAWER 7, Y5N ONE ×2 (08:52→19:22)
[2021-05-08] MEDS: MINERAL OIL/PETROLAT/WATER TOPICAL CREAM 113 GM JAR TP SCH ×2 (10:01→21:58)
[2021-05-08] MEDS: POLYETHYLENE GLYCOL 3350 255 GM BTL PO SCH (10:01)
[2021-05-08] MEDS: PRENATAL VITAMINS W/ FOLIC ACID TABLET (FP) PO SCH (10:01)
[2021-05-08] MEDS: NICOTINE 14 MG/24 HOURS TOPICAL PATCH TD SCH (10:01)
[2021-05-08] MEDS: NAPROXEN 500 MG TABLET PO PRN ×2 (10:01→21:55)
[2021-05-08] MEDS: CHLORHEXIDINE GLUCONATE 118 ML MOUTHWASH MM SCH ×2 (10:01→21:58)
[2021-05-08] MEDS: HYDROCORTISONE 1% TOPICAL CREAM 30 GM TUBE TP SCH ×2 (10:01→21:59)
[2021-05-08] MEDS: hydrOXYzine PAMOATE 25 MG CAPSULE (FP) PO PRN ×2 (10:02→21:55)
[2021-05-08] MEDS: MELATONIN 5 MG TABLETS PO SCH (21:55)
[2021-05-08] MEDS: THIAMINE HCL 100 MG TABLET (FP) PO SCH (21:59)
[2021-05-09] MEDS ORDERED: PT OWN MED DRAWER 7, Y5N ONE ×2 (03:26→21:10)
[2021-05-09] MEDS: methaDONE HCL 40 MG DISPERSABLE TABLET PO SCH (06:15)
[2021-05-09] MEDS: hydrOXYzine PAMOATE 25 MG CAPSULE (FP) PO PRN ×3 (06:16→21:11)
[2021-05-09] MEDS: NAPROXEN 500 MG TABLET PO PRN ×2 (09:41→21:11)
[2021-05-09] MEDS: NICOTINE 14 MG/24 HOURS TOPICAL PATCH TD SCH (09:42)
[2021-05-09] MEDS: HYDROCORTISONE 1% TOPICAL CREAM 30 GM TUBE TP SCH ×2 (09:42→22:53)
[2021-05-09] MEDS: CHLORHEXIDINE GLUCONATE 118 ML MOUTHWASH MM SCH ×2 (09:42→22:53)
[2021-05-09] MEDS: POLYETHYLENE GLYCOL 3350 255 GM BTL PO SCH (09:42)
[2021-05-09] MEDS: MINERAL OIL/PETROLAT/WATER TOPICAL CREAM 113 GM JAR TP SCH ×2 (09:42→22:53)
[2021-05-09] MEDS: PRENATAL VITAMINS W/ FOLIC ACID TABLET (FP) PO SCH (09:42)
[2021-05-09] MEDS: MELATONIN 5 MG TABLETS PO SCH (21:09)
[2021-05-09] MEDS: THIAMINE HCL 100 MG TABLET (FP) PO SCH (21:11)
[2021-05-10] MEDS: methaDONE HCL 40 MG DISPERSABLE TABLET PO SCH (06:20)
[2021-05-10] MEDS: hydrOXYzine PAMOATE 25 MG CAPSULE (FP) PO PRN ×2 (06:21→13:02)
[2021-05-10] MEDS ORDERED: PT OWN MED DRAWER 7, Y5N ONE ×2 (09:38→11:33)
[2021-05-10] MEDS: CHLORHEXIDINE GLUCONATE 118 ML MOUTHWASH MM SCH ×2 (10:12→23:16)
[2021-05-10] MEDS: MINERAL OIL/PETROLAT/WATER TOPICAL CREAM 113 GM JAR TP SCH ×2 (10:13→23:16)
[2021-05-10] MEDS: PRENATAL VITAMINS W/ FOLIC ACID TABLET (FP) PO SCH (10:13)
[2021-05-10] MEDS: HYDROCORTISONE 1% TOPICAL CREAM 30 GM TUBE TP SCH ×2 (10:13→23:16)
[2021-05-10] MEDS: POLYETHYLENE GLYCOL 3350 255 GM BTL PO SCH (10:13)
[2021-05-10] MEDS: NICOTINE 14 MG/24 HOURS TOPICAL PATCH TD SCH (10:13)
[2021-05-10] MEDS: MELATONIN 5 MG TABLETS PO SCH (23:16)
[2021-05-10] MEDS: THIAMINE HCL 100 MG TABLET (FP) PO SCH (23:17)
[2021-05-11] MEDS: methaDONE HCL 40 MG DISPERSABLE TABLET PO SCH (06:45)
[2021-05-11] MEDS: hydrOXYzine PAMOATE 25 MG CAPSULE (FP) PO PRN ×3 (06:46→18:49)
[2021-05-11] MEDS: HYDROCORTISONE 1% TOPICAL CREAM 30 GM TUBE TP SCH ×2 (10:20→21:11)
[2021-05-11] MEDS: MINERAL OIL/PETROLAT/WATER TOPICAL CREAM 113 GM JAR TP SCH ×2 (10:20→21:11)
[2021-05-11] MEDS: NICOTINE 14 MG/24 HOURS TOPICAL PATCH TD SCH (10:20)
[2021-05-11] MEDS: PRENATAL VITAMINS W/ FOLIC ACID TABLET (FP) PO SCH (10:20)
[2021-05-11] MEDS: POLYETHYLENE GLYCOL 3350 255 GM BTL PO SCH (10:20)
[2021-05-11] MEDS: CHLORHEXIDINE GLUCONATE 118 ML MOUTHWASH MM SCH ×2 (10:20→21:11)
[2021-05-11] MEDS: NAPROXEN 500 MG TABLET PO PRN (18:47)
[2021-05-11] MEDS ORDERED: PT OWN MED DRAWER 7, Y5N ONE (18:48)
[2021-05-11] MEDS: THIAMINE HCL 100 MG TABLET (FP) PO SCH (21:11)
[2021-05-11] MEDS: MELATONIN 5 MG TABLETS PO SCH (23:28)
[2021-05-12] MEDS ORDERED: methaDONE HCL 40 MG DISPERSABLE TABLET PO SCH (06:00)
[2021-05-12] MEDS ORDERED: methaDONE HCL 40 MG DISPERSABLE TABLET ONE (06:16)
[2021-05-12] MEDS ORDERED: methaDONE HCL 10 MG TABLET ONE (06:16)
[2021-05-12] MEDS: methaDONE 80 MG, methaDONE 10 MG PO SCH (06:40)
[2021-05-12] MEDS: hydrOXYzine PAMOATE 25 MG CAPSULE (FP) PO PRN ×2 (06:42→21:50)
[2021-05-12] MEDS: PRENATAL VITAMINS W/ FOLIC ACID TABLET (FP) PO SCH (09:45)
[2021-05-12] MEDS: NICOTINE 14 MG/24 HOURS TOPICAL PATCH TD SCH (09:45)
[2021-05-12] MEDS: MINERAL OIL/PETROLAT/WATER TOPICAL CREAM 113 GM JAR TP SCH ×2 (09:45→21:54)
[2021-05-12] MEDS: NAPROXEN 500 MG TABLET PO PRN ×2 (09:45→21:53)
[2021-05-12] MEDS: POLYETHYLENE GLYCOL 3350 255 GM BTL PO SCH (09:45)
[2021-05-12] MEDS: HYDROCORTISONE 1% TOPICAL CREAM 30 GM TUBE TP SCH ×2 (09:45→21:54)
[2021-05-12] MEDS: CHLORHEXIDINE GLUCONATE 118 ML MOUTHWASH MM SCH ×2 (09:46→21:55)
[2021-05-12] MEDS ORDERED: PT OWN MED DRAWER 7, Y5N ONE ×3 (10:13→21:52)
[2021-05-12] MEDS: MELATONIN 5 MG TABLETS PO SCH (21:53)
[2021-05-12] MEDS: THIAMINE HCL 100 MG TABLET (FP) PO SCH (21:54)
[2021-05-13] MEDS ORDERED: methaDONE HCL 10 MG TABLET ONE (03:30)
[2021-05-13] MEDS ORDERED: methaDONE HCL 40 MG DISPERSABLE TABLET ONE (03:31)
[2021-05-13] MEDS: methaDONE 80 MG, methaDONE 10 MG PO SCH (06:38)
[2021-05-13] MEDS: hydrOXYzine PAMOATE 25 MG CAPSULE (FP) PO PRN ×2 (06:40→17:37)
[2021-05-13] MEDS: PRENATAL VITAMINS W/ FOLIC ACID TABLET (FP) PO SCH (09:38)
[2021-05-13] MEDS: NAPROXEN 500 MG TABLET PO PRN (09:38)
[2021-05-13] MEDS: HYDROCORTISONE 1% TOPICAL CREAM 30 GM TUBE TP SCH ×2 (09:39→22:29)
[2021-05-13] MEDS: NICOTINE 14 MG/24 HOURS TOPICAL PATCH TD SCH (09:39)
[2021-05-13] MEDS: ERGOCALCIFEROL (VIT D2) 50,000 UNIT (1.25 MG) CAPSULE PO SCH (09:39)
[2021-05-13] MEDS: POLYETHYLENE GLYCOL 3350 255 GM BTL PO SCH (09:39)
[2021-05-13] MEDS: MINERAL OIL/PETROLAT/WATER TOPICAL CREAM 113 GM JAR TP SCH ×2 (09:39→22:29)
[2021-05-13] MEDS: CHLORHEXIDINE GLUCONATE 118 ML MOUTHWASH MM SCH ×2 (09:39→22:28)
[2021-05-13] MEDS ORDERED: PT OWN MED DRAWER 7, Y5N ONE ×2 (10:08→19:12)
[2021-05-13] MEDS: MELATONIN 5 MG TABLETS PO SCH (22:29)
[2021-05-13] MEDS: THIAMINE HCL 100 MG TABLET (FP) PO SCH (22:29)
[2021-05-14] MEDS ORDERED: methaDONE HCL 10 MG TABLET ONE (03:34)
[2021-05-14] MEDS ORDERED: methaDONE HCL 40 MG DISPERSABLE TABLET ONE (03:35)
[2021-05-14] MEDS: methaDONE 80 MG, methaDONE 10 MG PO SCH (06:32)
[2021-05-14] MEDS: hydrOXYzine PAMOATE 25 MG CAPSULE (FP) PO PRN ×3 (06:33→21:59)
[2021-05-14] MEDS: CHLORHEXIDINE GLUCONATE 118 ML MOUTHWASH MM SCH ×2 (09:38→23:04)
[2021-05-14] MEDS: MINERAL OIL/PETROLAT/WATER TOPICAL CREAM 113 GM JAR TP SCH ×2 (09:39→23:05)
[2021-05-14] MEDS: NICOTINE 14 MG/24 HOURS TOPICAL PATCH TD SCH (09:39)
[2021-05-14] MEDS: HYDROCORTISONE 1% TOPICAL CREAM 30 GM TUBE TP SCH ×2 (09:39→23:05)
[2021-05-14] MEDS: PRENATAL VITAMINS W/ FOLIC ACID TABLET (FP) PO SCH (09:39)
[2021-05-14] MEDS: POLYETHYLENE GLYCOL 3350 255 GM BTL PO SCH (09:39)
[2021-05-14] MEDS: NICOTINE POLACRILEX 4 MG GUM BUC PRN ×2 (11:06→17:43)
[2021-05-14] MEDS ORDERED: PT OWN MED DRAWER 7, Y5N ONE ×3 (12:28→21:59)
[2021-05-14] MEDS: NAPROXEN 500 MG TABLET PO PRN ×2 (12:28→21:58)
[2021-05-14] MEDS: MELATONIN 5 MG TABLETS PO SCH (21:59)
[2021-05-14] MEDS: CLINDAMYCIN HCL 150 MG CAPSULE (FP) PO SCH (23:04)
[2021-05-14] MEDS: THIAMINE HCL 100 MG TABLET (FP) PO SCH (23:05)
[2021-05-15] MEDS ORDERED: methaDONE HCL 10 MG TABLET ONE (04:57)
[2021-05-15] MEDS ORDERED: methaDONE HCL 40 MG DISPERSABLE TABLET ONE (04:57)
[2021-05-15] MEDS: methaDONE 80 MG, methaDONE 10 MG PO SCH (06:42)
[2021-05-15] MEDS: hydrOXYzine PAMOATE 25 MG CAPSULE (FP) PO PRN (06:44)
[2021-05-15] MEDS: CLINDAMYCIN HCL 150 MG CAPSULE (FP) PO SCH ×3 (06:45→22:05)
[2021-05-15] MEDS: POLYETHYLENE GLYCOL 3350 255 GM BTL PO SCH (09:15)
[2021-05-15] MEDS: CHLORHEXIDINE GLUCONATE 118 ML MOUTHWASH MM SCH ×2 (09:15→22:50)
[2021-05-15] MEDS: HYDROCORTISONE 1% TOPICAL CREAM 30 GM TUBE TP SCH ×2 (09:15→22:05)
[2021-05-15] MEDS: MINERAL OIL/PETROLAT/WATER TOPICAL CREAM 113 GM JAR TP SCH ×2 (09:15→22:51)
[2021-05-15] MEDS: PRENATAL VITAMINS W/ FOLIC ACID TABLET (FP) PO SCH (09:16)
[2021-05-15] MEDS: NICOTINE 14 MG/24 HOURS TOPICAL PATCH TD SCH (09:16)
[2021-05-15] MEDS ORDERED: PT OWN MED DRAWER 7, Y5N ONE (19:27)
[2021-05-15] MEDS: THIAMINE HCL 100 MG TABLET (FP) PO SCH (22:05)
[2021-05-15] MEDS: MELATONIN 5 MG TABLETS PO SCH (22:05)
[2021-05-16] MEDS ORDERED: PT OWN MED DRAWER 7, Y5N ONE ×3 (03:47→11:57)
[2021-05-16] MEDS ORDERED: methaDONE HCL 10 MG TABLET ONE (03:47)
[2021-05-16] MEDS ORDERED: methaDONE HCL 40 MG DISPERSABLE TABLET ONE (03:47)
[2021-05-16] MEDS: methaDONE 80 MG, methaDONE 10 MG PO SCH (06:20)
[2021-05-16] MEDS: CLINDAMYCIN HCL 150 MG CAPSULE (FP) PO SCH ×3 (06:23→22:02)
[2021-05-16] MEDS: hydrOXYzine PAMOATE 25 MG CAPSULE (FP) PO PRN ×2 (07:06→11:56)
[2021-05-16] MEDS: HYDROCORTISONE 1% TOPICAL CREAM 30 GM TUBE TP SCH ×2 (09:54→22:04)
[2021-05-16] MEDS: MINERAL OIL/PETROLAT/WATER TOPICAL CREAM 113 GM JAR TP SCH ×2 (09:54→22:04)
[2021-05-16] MEDS: CHLORHEXIDINE GLUCONATE 118 ML MOUTHWASH MM SCH ×2 (09:54→22:04)
[2021-05-16] MEDS: PRENATAL VITAMINS W/ FOLIC ACID TABLET (FP) PO SCH (09:55)
[2021-05-16] MEDS: POLYETHYLENE GLYCOL 3350 255 GM BTL PO SCH (09:55)
[2021-05-16] MEDS: NICOTINE 14 MG/24 HOURS TOPICAL PATCH TD SCH (09:55)
[2021-05-16] MEDS: NAPROXEN 500 MG TABLET PO PRN (11:57)
[2021-05-16] MEDS: MELATONIN 5 MG TABLETS PO SCH (22:02)
[2021-05-16] MEDS: THIAMINE HCL 100 MG TABLET (FP) PO SCH (22:04)
[2021-05-17] MEDS ORDERED: methaDONE HCL 40 MG DISPERSABLE TABLET ONE (03:37)
[2021-05-17] MEDS ORDERED: methaDONE HCL 10 MG TABLET ONE (03:37)
[2021-05-17] MEDS ORDERED: PT OWN MED DRAWER 7, Y5N ONE (03:39)
[2021-05-17] MEDS: methaDONE 80 MG, methaDONE 10 MG PO SCH (06:43)
[2021-05-17] MEDS: hydrOXYzine PAMOATE 25 MG CAPSULE (FP) PO PRN (06:43)
[2021-05-17] MEDS: NICOTINE POLACRILEX 4 MG GUM BUC PRN (06:46)
[2021-05-17] MEDS: CLINDAMYCIN HCL 150 MG CAPSULE (FP) PO SCH ×3 (08:04→21:56)
[2021-05-17] MEDS: NAPROXEN 500 MG TABLET PO PRN (09:13)
[2021-05-17] MEDS: CHLORHEXIDINE GLUCONATE 118 ML MOUTHWASH MM SCH ×2 (09:14→21:56)
[2021-05-17] MEDS: NICOTINE 14 MG/24 HOURS TOPICAL PATCH TD SCH (09:14)
[2021-05-17] MEDS: POLYETHYLENE GLYCOL 3350 255 GM BTL PO SCH (09:14)
[2021-05-17] MEDS: MINERAL OIL/PETROLAT/WATER TOPICAL CREAM 113 GM JAR TP SCH ×2 (09:14→21:56)
[2021-05-17] MEDS: HYDROCORTISONE 1% TOPICAL CREAM 30 GM TUBE TP SCH ×2 (09:14→21:57)
[2021-05-17] MEDS: PRENATAL VITAMINS W/ FOLIC ACID TABLET (FP) PO SCH (09:15)
[2021-05-17] MEDS: MELATONIN 5 MG TABLETS PO SCH (21:57)
[2021-05-17] MEDS: THIAMINE HCL 100 MG TABLET (FP) PO SCH (21:57)
[2021-05-18] MEDS ORDERED: methaDONE HCL 10 MG TABLET ONE (06:25)
[2021-05-18] MEDS ORDERED: methaDONE HCL 40 MG DISPERSABLE TABLET ONE (06:25)
[2021-05-18] MEDS: methaDONE 80 MG, methaDONE 10 MG PO SCH (06:26)
[2021-05-18] MEDS: hydrOXYzine PAMOATE 25 MG CAPSULE (FP) PO PRN ×3 (06:26→21:58)
[2021-05-18] MEDS: CLINDAMYCIN HCL 150 MG CAPSULE (FP) PO SCH ×3 (06:27→21:59)
[2021-05-18] MEDS ORDERED: PT OWN MED DRAWER 7, Y5N ONE ×2 (09:00→09:33)
[2021-05-18] MEDS: CHLORHEXIDINE GLUCONATE 118 ML MOUTHWASH MM SCH ×2 (09:34→21:59)
[2021-05-18] MEDS: MINERAL OIL/PETROLAT/WATER TOPICAL CREAM 113 GM JAR TP SCH ×2 (09:34→21:59)
[2021-05-18] MEDS: NICOTINE 14 MG/24 HOURS TOPICAL PATCH TD SCH (09:34)
[2021-05-18] MEDS: NAPROXEN 500 MG TABLET PO PRN (09:34)
[2021-05-18] MEDS: PRENATAL VITAMINS W/ FOLIC ACID TABLET (FP) PO SCH (09:34)
[2021-05-18] MEDS: POLYETHYLENE GLYCOL 3350 255 GM BTL PO SCH (09:35)
[2021-05-18] MEDS: HYDROCORTISONE 1% TOPICAL CREAM 30 GM TUBE TP SCH ×2 (09:35→21:59)
[2021-05-18] MEDS: MELATONIN 5 MG TABLETS PO SCH (21:58)
[2021-05-18] MEDS: THIAMINE HCL 100 MG TABLET (FP) PO SCH (22:00)
[2021-05-19] MEDS ORDERED: methaDONE HCL 40 MG DISPERSABLE TABLET ONE (03:28)
[2021-05-19] MEDS ORDERED: methaDONE HCL 10 MG TABLET ONE (03:28)
[2021-05-19] MEDS: CLINDAMYCIN HCL 150 MG CAPSULE (FP) PO SCH ×3 (06:30→21:28)
[2021-05-19] MEDS: hydrOXYzine PAMOATE 25 MG CAPSULE (FP) PO PRN ×3 (06:31→21:26)
[2021-05-19] MEDS: methaDONE 80 MG, methaDONE 10 MG PO SCH (06:32)
[2021-05-19] MEDS: NAPROXEN 500 MG TABLET PO PRN ×2 (09:28→21:27)
[2021-05-19] MEDS: NICOTINE 14 MG/24 HOURS TOPICAL PATCH TD SCH (09:29)
[2021-05-19] MEDS: HYDROCORTISONE 1% TOPICAL CREAM 30 GM TUBE TP SCH ×2 (09:32→21:28)
[2021-05-19] MEDS: CHLORHEXIDINE GLUCONATE 118 ML MOUTHWASH MM SCH ×2 (09:32→21:28)
[2021-05-19] MEDS: MINERAL OIL/PETROLAT/WATER TOPICAL CREAM 113 GM JAR TP SCH ×2 (09:32→21:29)
[2021-05-19] MEDS ORDERED: PT OWN MED DRAWER 7, Y5N ONE ×3 (09:52→21:29)
[2021-05-19] MEDS: POLYETHYLENE GLYCOL 3350 255 GM BTL PO SCH (09:54)
[2021-05-19] MEDS: PRENATAL VITAMINS W/ FOLIC ACID TABLET (FP) PO SCH (09:54)
[2021-05-19] MEDS: THIAMINE HCL 100 MG TABLET (FP) PO SCH (21:27)
[2021-05-19] MEDS: MELATONIN 5 MG TABLETS PO SCH (21:28)
[2021-05-20] MEDS ORDERED: methaDONE HCL 10 MG TABLET ONE (02:55)
[2021-05-20] MEDS ORDERED: methaDONE HCL 40 MG DISPERSABLE TABLET ONE (02:55)
[2021-05-20] MEDS: methaDONE 80 MG, methaDONE 10 MG PO SCH (06:32)
[2021-05-20] MEDS: CLINDAMYCIN HCL 150 MG CAPSULE (FP) PO SCH ×3 (06:32→21:09)
[2021-05-20] MEDS: hydrOXYzine PAMOATE 25 MG CAPSULE (FP) PO PRN ×3 (06:32→21:06)
[2021-05-20] MEDS ORDERED: PT OWN MED DRAWER 7, Y5N ONE ×3 (08:51→21:09)
[2021-05-20] MEDS: POLYETHYLENE GLYCOL 3350 255 GM BTL PO SCH (09:38)
[2021-05-20] MEDS: NICOTINE 14 MG/24 HOURS TOPICAL PATCH TD SCH (09:38)
[2021-05-20] MEDS: NAPROXEN 500 MG TABLET PO PRN ×2 (09:38→21:09)
[2021-05-20] MEDS: HYDROCORTISONE 1% TOPICAL CREAM 30 GM TUBE TP SCH ×2 (09:38→21:06)
[2021-05-20] MEDS: PRENATAL VITAMINS W/ FOLIC ACID TABLET (FP) PO SCH (09:38)
[2021-05-20] MEDS: ERGOCALCIFEROL (VIT D2) 50,000 UNIT (1.25 MG) CAPSULE PO SCH (09:39)
[2021-05-20] MEDS: CHLORHEXIDINE GLUCONATE 118 ML MOUTHWASH MM SCH ×2 (09:39→21:09)
[2021-05-20] MEDS: MINERAL OIL/PETROLAT/WATER TOPICAL CREAM 113 GM JAR TP SCH ×2 (09:39→21:09)
[2021-05-20] MEDS: THIAMINE HCL 100 MG TABLET (FP) PO SCH (21:06)
[2021-05-20] MEDS: MELATONIN 5 MG TABLETS PO SCH (21:06)
[2021-05-21] MEDS ORDERED: methaDONE HCL 40 MG DISPERSABLE TABLET ONE (02:50)
[2021-05-21] MEDS ORDERED: methaDONE HCL 10 MG TABLET ONE (02:50)
[2021-05-21] MEDS: CLINDAMYCIN HCL 150 MG CAPSULE (FP) PO SCH ×2 (06:28→13:01)
[2021-05-21] MEDS: hydrOXYzine PAMOATE 25 MG CAPSULE (FP) PO PRN ×2 (06:28→18:44)
[2021-05-21] MEDS: methaDONE 80 MG, methaDONE 10 MG PO SCH (06:29)
[2021-05-21] MEDS: NAPROXEN 500 MG TABLET PO PRN ×2 (09:40→18:44)
[2021-05-21] MEDS ORDERED: PT OWN MED DRAWER 7, Y5N ONE ×2 (09:53→18:44)
[2021-05-21] MEDS: POLYETHYLENE GLYCOL 3350 255 GM BTL PO SCH (09:57)
[2021-05-21] MEDS: CHLORHEXIDINE GLUCONATE 118 ML MOUTHWASH MM SCH ×2 (09:57→21:42)
[2021-05-21] MEDS: MINERAL OIL/PETROLAT/WATER TOPICAL CREAM 113 GM JAR TP SCH ×2 (09:57→21:43)
[2021-05-21] MEDS: NICOTINE 14 MG/24 HOURS TOPICAL PATCH TD SCH (09:57)
[2021-05-21] MEDS: HYDROCORTISONE 1% TOPICAL CREAM 30 GM TUBE TP SCH ×2 (09:57→21:43)
[2021-05-21] MEDS: PRENATAL VITAMINS W/ FOLIC ACID TABLET (FP) PO SCH (09:58)
[2021-05-21] MEDS: MELATONIN 5 MG TABLETS PO SCH (21:43)
[2021-05-21] MEDS: THIAMINE HCL 100 MG TABLET (FP) PO SCH (21:43)
[2021-05-22] MEDS ORDERED: methaDONE HCL 40 MG DISPERSABLE TABLET ONE (03:40)
[2021-05-22] MEDS ORDERED: methaDONE HCL 10 MG TABLET ONE (03:40)
[2021-05-22] MEDS: methaDONE 80 MG, methaDONE 10 MG PO SCH (06:29)
[2021-05-22] MEDS: hydrOXYzine PAMOATE 25 MG CAPSULE (FP) PO PRN ×2 (06:30→21:10)
[2021-05-22] MEDS: PRENATAL VITAMINS W/ FOLIC ACID TABLET (FP) PO SCH (10:00)
[2021-05-22] MEDS: HYDROCORTISONE 1% TOPICAL CREAM 30 GM TUBE TP SCH ×2 (10:00→21:11)
[2021-05-22] MEDS: NICOTINE 14 MG/24 HOURS TOPICAL PATCH TD SCH (10:00)
[2021-05-22] MEDS: CHLORHEXIDINE GLUCONATE 118 ML MOUTHWASH MM SCH ×2 (10:00→21:11)
[2021-05-22] MEDS: POLYETHYLENE GLYCOL 3350 255 GM BTL PO SCH (10:00)
[2021-05-22] MEDS: MINERAL OIL/PETROLAT/WATER TOPICAL CREAM 113 GM JAR TP SCH ×2 (10:00→21:11)
[2021-05-22] MEDS ORDERED: PT OWN MED DRAWER 7, Y5N ONE ×2 (10:26→21:44)
[2021-05-22] MEDS: MELATONIN 5 MG TABLETS PO SCH (21:09)
[2021-05-22] MEDS: THIAMINE HCL 100 MG TABLET (FP) PO SCH (21:19)
[2021-05-23] MEDS ORDERED: methaDONE HCL 40 MG DISPERSABLE TABLET ONE (03:35)
[2021-05-23] MEDS ORDERED: methaDONE HCL 10 MG TABLET ONE (03:35)
[2021-05-23] MEDS: methaDONE 80 MG, methaDONE 10 MG PO SCH (06:38)
[2021-05-23] MEDS: hydrOXYzine PAMOATE 25 MG CAPSULE (FP) PO PRN ×2 (06:38→15:14)
[2021-05-23] MEDS: PRENATAL VITAMINS W/ FOLIC ACID TABLET (FP) PO SCH (09:34)
[2021-05-23] MEDS: CHLORHEXIDINE GLUCONATE 118 ML MOUTHWASH MM SCH ×2 (09:35→22:15)
[2021-05-23] MEDS: MINERAL OIL/PETROLAT/WATER TOPICAL CREAM 113 GM JAR TP SCH ×2 (09:36→22:15)
[2021-05-23] MEDS: HYDROCORTISONE 1% TOPICAL CREAM 30 GM TUBE TP SCH ×2 (09:36→22:15)
[2021-05-23] MEDS: POLYETHYLENE GLYCOL 3350 255 GM BTL PO SCH (09:36)
[2021-05-23] MEDS: NICOTINE 14 MG/24 HOURS TOPICAL PATCH TD SCH (09:36)
[2021-05-23] MEDS ORDERED: PT OWN MED DRAWER 7, Y5N ONE (15:13)
[2021-05-23] MEDS: NAPROXEN 500 MG TABLET PO PRN (15:14)
[2021-05-23] MEDS: MELATONIN 5 MG TABLETS PO SCH (22:15)
[2021-05-23] MEDS: THIAMINE HCL 100 MG TABLET (FP) PO SCH (22:16)
[2021-05-24] MEDS ORDERED: methaDONE HCL 40 MG DISPERSABLE TABLET ONE (05:48)
[2021-05-24] MEDS ORDERED: methaDONE HCL 10 MG TABLET ONE (05:48)
[2021-05-24] MEDS: methaDONE 80 MG, methaDONE 10 MG PO SCH (06:26)
[2021-05-24] MEDS: hydrOXYzine PAMOATE 25 MG CAPSULE (FP) PO PRN (06:26)
[2021-05-24] MEDS ORDERED: PT OWN MED DRAWER 7, Y5N ONE (06:28)
[2021-05-24] MEDS: NAPROXEN 500 MG TABLET PO PRN (06:28)
[2021-05-24 06:39] VITALS: BP 116/75; PULSE 58; TEMP 97.5
[2021-05-24] MEDS: PRENATAL VITAMINS W/ FOLIC ACID TABLET (FP) PO SCH (09:11)
[2021-05-24] MEDS: MINERAL OIL/PETROLAT/WATER TOPICAL CREAM 113 GM JAR TP SCH (09:11)
[2021-05-24] MEDS: CHLORHEXIDINE GLUCONATE 118 ML MOUTHWASH MM SCH (09:11)
[2021-05-24] MEDS: HYDROCORTISONE 1% TOPICAL CREAM 30 GM TUBE TP SCH (09:11)
[2021-05-24] MEDS: POLYETHYLENE GLYCOL 3350 255 GM BTL PO SCH (09:11)
[2021-05-24] MEDS: NICOTINE 14 MG/24 HOURS TOPICAL PATCH TD SCH (09:11)
== END 2021-05-24 09:57 | disposition home or self-care (01) | DRG 772 ==
LOC: YASAS 19:22 → Y3E 04-26 11:03
PROVIDERS: ADMIT Allergy & Immunology; ATTEND Allergy & Immunology
PROC: HZ42ZZZ Group Counseling for Substance Abuse Treatment, Cognitive-Behavioral (ICD-10-PCS; principal; 2021-04-26)
DX: F10.20 Alcohol dependence, uncomplicated (principal); F11.20 Opioid dependence, uncomplicated; F14.20 Cocaine dependence, uncomplicated; F16.20 Hallucinogen dependence, uncomplicated; F17.210 Nicotine dependence, cigarettes, uncomplicated; F20.9 Schizophrenia, unspecified; F31.9 Bipolar disorder, unspecified; F19.282 Other psychoactive substance dependence with psychoactive substance-induced sleep disorder; F19.24 Other psychoactive substance dependence with psychoactive substance-induced mood disorder; F41.9 Anxiety disorder, unspecified; F43.10 Post-traumatic stress disorder, unspecified; R68.84 Jaw pain; M54.50 Low back pain, unspecified; G89.29 Other chronic pain; Z62.810 Personal history of physical and sexual abuse in childhood; Z86.2 Personal history of diseases of the blood and blood-forming organs and certain disorders involving the immune mechanism; Z86.69 Personal history of other diseases of the nervous system and sense organs; Z91.14 Patient's other noncompliance with medication regimen
CPT/HCPCS: 36415; 80053; 85027; 86780; C9803; G0396; J0475; U0003; U0005